=== PATIENT | female | born 1945 | race Caucasian/White ===

== ENCOUNTER 2016-12-27 01:03 | Emergency (ER) | payer OTHER, MEDICARE ==
[~2016-12-27] VITALS: Ht 172.7 cm; Wt 92.2 kg
[2016-12-27 01:13] VITALS: Ht 172.7 cm; Wt 92.2 kg
[2016-12-27 01:40] LABS: BASO % 0.3 %; BASO ABS # 0.03 K/uL (0-0.2); COMPLETE YES; EOS % 1.9 %; HEMATOCRIT 40.1 % (37-47); IG% 0.2 %; LYMPH % 25.8 %; LYMPH ABS # 2.26 K/uL (1.2-3.4); MEAN CELL VOLUME 86.6 fL (80-100); MEAN CORPUSCULAR HEMOGLOBIN 30.2 pg (25-34); MEAN CORPUSCULAR HGB CONC 34.9 g/dl (32-36); MEAN PLATELET VOLUME 9.7 fL (7.4-10.4); MONO % 5.3 %; NEUT % 66.5 %; PLATELET COUNT 296 K/uL (130-400); RED BLOOD COUNT 4.63 M/uL (4.2-5.4); WHITE BLOOD COUNT 8.76 K/uL (4.8-10.8)
[2016-12-27 01:59] LABS: BUN/CREATININE RATIO 16.5 (10-20); CALCIUM 8.7 mg/dl (8.5-10.1); CREATININE 0.91 mg/dl (0.60-1.20); MAGNESIUM 2.1 mg/dl (1.8-2.4); POTASSIUM 3.8 mmol/L (3.5-5.1)
[2016-12-27] MEDS ORDERED: MELO7.5T5 PO (02:05)
[2016-12-27] MEDS ORDERED: CALC500C3 PO (02:05)
[2016-12-27] MEDS ORDERED: PSYL48.59 PO (02:05)
[2016-12-27] MEDS ORDERED: [UNRECOGNIZED DRUG - OTHER] PO (02:08)
[2016-12-27] MEDS ORDERED: B-COTAB18 PO (02:08)
[2016-12-27 02:10] LABS: CKMB/CK RATIO 1.1 (0-3.0); THYROID STIMULATING HORMONE 2.7 uIu/ml (0.300-4.500)
[2016-12-27 02:34] VITALS: TEMP 37
[2016-12-27 03:05] LABS: MANUAL MICROSCOPIC REQUIRED? NO; REVIEW REQ? NO; URINE APPEARANCE CLOUDY (CLEAR); URINE BILIRUBIN NEG (NEG); URINE COLOR YELLOW; URINE EPITHELIAL CELL AUTO 20-30 /lpf (0-5); URINE NITRITE NEG (NEG); URINE PH 6.5 (4.5-7.5); URINE SPECIFIC GRAVITY 1.009 (1.000-1.030); UROBILINOGEN NEG (NEG); ZZUR CULT IF INDIC CLEAN CATCH YES
--- NOTE | 2016-12-27 03:27 | EMERGENCY ROOM VISIT NOTE ---
History Report prepared by Vane: Dion White Under the Supervision of: Dr. Hemalatha Jovel M.D. First contact with patient: 01:13 Chief Complaint: PALPITATIONS Stated Complaint: HEART PALPITATIONS,ANXIETY History of Present Illness The patient is a 71 year old female who presents to the Emergency Room with complaints of constant heart palpitations beginning today. She states that she has felt extremely anxious today. She has no diagnosed history of anxiety. She denies any shortness of breath. The patient denies any recent changes to her medications. She denies any increased coffee or alcohol today. She has no history of cardiac problems. The patient denies any recent travel. She denies any additional stressors in her life. Source of History: patient Onset: Today Position: chest (heart) Quality: other (palpitations) Timing: constant Associated Symptoms: No SOB Review of Systems See HPI for pertinent positives & negatives. A total of 10 systems reviewed and were otherwise negative. Past Medical & Surgical Medical Problems: (1) No Known Active Medical Problems (2) Spinal injury Family History No pertinent family history stated. Social History Marital Status: Housing Status: lives with family Current/Historical Medications Scheduled B-Complex Vitamins (Vitamin B Complex), 1 TAB PO DAILY Psyllium (Metamucil), 1 DOSE PO DAILY [rehmania], 5 DROPS PO DAILY Scheduled PRN Calcium Carbonate (Tums), 1 TAB PO DAILY PRN for Heartburn Meloxicam (Mobic), 7.5 MG PO DAILY PRN for Muscle Spasms Allergies Coded Allergies: Paroxetine (Verified Allergy, Unknown, severe constipation, 12/27/16) Physical Exam Vital Signs Date Time Temp Pulse Resp B/P Pulse Ox O2 Delivery O2 Flow Rate FiO2 12/27/16 04:08 56 20 139/78 95 12/27/16 03:13 77 14 153/80 97 Room Air 12/27/16 02:34 37.0 64 16 164/76 97 Room Air 12/27/16 01:21 82 12/27/16 01:13 68 20 175/93 97 Room Air 12/27/16 01:10 97 Room Air Physical Exam Vital signs reviewed. General: Well-appearing female, in no significant distress. HEENT: No scleral icterus, PERRLA, neck supple. Atraumatic. Cardiovascular: Rate controlled. Occasional ectopy. Pulmonary: Clear to auscultation bilaterally, normal work of breathing. Abdomen: Soft, nontender, nondistended, positive bowel sounds. Musculoskeletal: Atraumatic, no peripheral edema. Neurologic: Patient awake alert and oriented x 3, full strength in all 4 extremities. Cranial nerves 2 through 12 grossly intact. Skin: Warm, dry, no rash Medical Decision & Procedures ER Provider Diagnostic Interpretation: One View Chest X-ray interpreted by me: No pulmonary edema. No focal consolidation. Normal mediastinum. Laboratory Results 12/27/16 01:30 Red Blood Count 4.63, Mean Corpuscular Volume 86.6, Mean Corpuscular Hemoglobin 30.2, Mean Corpuscular Hemoglobin Concent 34.9, Mean Platelet Volume 9.7, Neutrophils (%) (Auto) 66.5, Lymphocytes (%) (Auto) 25.8, Monocytes (%) (Auto) 5.3, Eosinophils (%) (Auto) 1.9, Basophils (%) (Auto) 0.3, Neutrophils # (Auto) 5.82, Lymphocytes # (Auto) 2.26, Monocytes # (Auto) 0.46, Eosinophils # (Auto) 0.17, Basophils # (Auto) 0.03 12/27/16 01:30 Test 12/27/16 01:30 12/27/16 01:35 12/27/16 02:50 White Blood Count 8.76 K/uL (4.8-10.8) Red Blood Count 4.63 M/uL (4.2-5.4) Hemoglobin 14.0 g/dL (12.0-16.0) Hematocrit 40.1 % (37-47) Mean Corpuscular Volume 86.6 fL (80-100) Mean Corpuscular Hemoglobin 30.2 pg (25-34) Mean Corpuscular Hemoglobin Concent 34.9 g/dl (32-36) Platelet Count 296 K/uL (130-400) Mean Platelet Volume 9.7 fL (7.4-10.4) Neutrophils (%) (Auto) 66.5 % Lymphocytes (%) (Auto) 25.8 % Monocytes (%) (Auto) 5.3 % Eosinophils (%) (Auto) 1.9 % Basophils (%) (Auto) 0.3 % Neutrophils # (Auto) 5.82 K/uL (1.4-6.5) Lymphocytes # (Auto) 2.26 K/uL (1.2-3.4) Monocytes # (Auto) 0.46 K/uL (0.11-0.59) Eosinophils # (Auto) 0.17 K/uL (0-0.5) Basophils # (Auto) 0.03 K/uL (0-0.2) RDW Standard Deviation 42.2 fL (36.4-46.3) RDW Coefficient of Variation 13.3 % (11.5-14.5) Immature Granulocyte % (Auto) 0.2 % Immature Granulocyte # (Auto) 0.02 K/uL (0.00-0.02) Anion Gap 9.0 mmol/L (3-11) Est Creatinine Clear Calc Drug Dose 67.3 ml/min Estimated GFR () 73.6 Estimated GFR (Non- 63.5 BUN/Creatinine Ratio 16.5 (10-20) Calcium Level 8.7 mg/dl (8.5-10.1) Magnesium Level 2.1 mg/dl (1.8-2.4) Total Bilirubin 0.5 mg/dl (0.2-1) Direct Bilirubin 0.1 mg/dl (0-0.2) Aspartate Amino Transf (AST/SGOT) 13 U/L (15-37) Alanine Aminotransferase (ALT/SGPT) 20 U/L (12-78) Alkaline Phosphatase 76 U/L (45-117) Total Creatine Kinase 93 U/L (26-192) Creatine Kinase MB 1.0 ng/ml (0.5-3.6) Creatine Kinase MB Ratio 1.1 (0-3.0) Total Protein 7.7 gm/dl (6.4-8.2) Albumin 3.7 gm/dl (3.4-5.0) Thyroid Stimulating Hormone (TSH) 2.700 uIu/ml (0.300-4.500) Bedside Troponin I 0.000 ng/ml (0-0.045) Urine Color YELLOW Urine Appearance CLOUDY (CLEAR) Urine pH 6.5 (4.5-7.5) Urine Specific [place] 1.009 (1.000-1.030) Urine Protein NEG (NEG) Urine Glucose (UA) NEG (NEG) Urine Ketones NEG (NEG) Urine Occult Blood TRACE (NEG) Urine Nitrite NEG (NEG) Urine Bilirubin NEG (NEG) Urine Urobilinogen NEG (NEG) Urine Leukocyte Esterase LARGE (NEG) Urine WBC (Auto) >30 /hpf (0-5) Urine RBC (Auto) 0-4 /hpf (0-4) Urine Hyaline Casts (Auto) 1-5 /lpf (0-5) Urine Epithelial Cells (Auto) 20-30 /lpf (0-5) Urine Bacteria (Auto) NEG (NEG) Laboratory results per my review. ECG Indication: palpitations Rate (beats per minute): 72 Rhythm: sinus rhythm (with premature supraventricular complexes) Findings: no acute ischemic change, other (non-specific ST changes in the lateral leads) ED Course 0124: Past medical records reviewed. The patient was evaluated in room B10. A complete history and physical examination was performed. 0325: Upon reevaluation, the patient appeared to have improvement of her symptoms. I discussed findings with her. The patient verbalized agreement of the treatment plan. She was discharged home. Medical Decision Differential diagnosis: Etiologies such as premature contractions, electrolyte abnormality, cardiac dysrhythmia, thyroid dysfunction, pulmonary embolism, infection, gastrointestinal, as well as others were entertained. This patient was evaluated and appeared to be in no significant distress. IV access was obtained and laboratory work was drawn. The patient was placed on the monitoring specialist and found to be in a normal sinus rhythm with frequent immature supraventricular complexes. Laboratory work reveals no significant electrolyte abnormality, cardiac enzymes are negative. Chest x-ray is negative to my interpretation. The patient's blood pressure came down after some observation without any intervention. The patient was advised to avoid caffeine , for which she drinks regularly. She was also advised to avoid alcohol but denies any frequent alcohol intake. Patient was asked to follow-up with her primary care physician within the next several days and to return to the ER for worsening of symptoms or any medical concerns. Impression Primary Impression: Premature contractions, supraventricular Scribe Attestation The scribe's documentation has been prepared under my direction and personally reviewed by me in its entirety. I confirm that the note above accurately reflects all work, treatment, procedures, and medical decision making performed by me. Departure Information Dispostion Home / Self-Care Referrals Josh Cardenas D.O. (PCP) Forms HOME CARE DOCUMENTATION FORM, IMPORTANT VISIT INFORMATION, WORK / SCHOOL INSTRUCTIONS Patient Instructions My [facility] Additional Instructions Diagnosis: Premature Supraventricular Contractions Drink plenty of fluids. Continue medications as prescribed. Avoid stimulants (caffiene and nicotine). Avoid alcohol. Follow up with your doctor this week for reevaluation. Return to emergency for worsening of symptoms or any medical concerns.
[2016-12-27 04:08] VITALS: BP 139/78; PULSE 56; O2SAT 95
--- NOTE | 2016-12-27 07:06 | DIAGNOSTIC IMAGING REPORT ---
CHEST ONE VIEW PORTABLE CLINICAL HISTORY: Palpitations. COMPARISON STUDY: No previous studies for comparison. FINDINGS: An anterior cervical spine fusion is incidentally noted. Lung volumes are normal. There is no consolidation. Linear left basilar opacity is suggestive of atelectasis. There is no evidence of pulmonary edema. Cardiac size is normal. Mediastinal contours are normal. IMPRESSION: No acute cardiopulmonary findings. Electronically signed by: Taqueria Callejas M.D. 12/27/2016 7:05 AM Dictated Date/Time: 12/27/2016 7:04 AM
== END 2016-12-27 04:09 | disposition home or self-care (01) ==
LOC: C.EDB 01:04
DX: I49.1 Atrial premature depolarization (principal); Z87.828 Personal history of other (healed) physical injury and trauma; Z88.8 Allergy status to other drugs, medicaments and biological substances